=== PATIENT | female | born 1995 | race Caucasian/White ===

== ENCOUNTER 2021-07-22 10:06 | Outpatient (CLI) | payer BC, SELFPAY ==
--- NOTE | ~2021-07-22 | XR_ITS ---
EXAMINATION: XR hand BI arthritis min 3V EXAM DATE: 07/22/2021 11:07 INDICATION: Arthritis X10 Years. TECHNIQUE: Right hand frontal, lateral and oblique projections obtained and reviewed. Left hand fron david, lateral and oblique projections obtained and reviewed. Catchers projection of both hands. There is no prior study for comparison. FINDINGS: Right hand: There are no bony erosions identified. There are no acute fractures or dislocations ident ified. There is no subcutaneous gas. The soft tissue is unremarkable. There are no radiopaque for eign bodies. Left hand: There are no bony erosions identified. There are no acute fractures or dislocations identi fied. There is no subcutaneous gas. The soft tissue is unremarkable. There are no radiopaque fore ign bodies. IMPRESSION: Unremarkable XR hand BI arthritis min 3V exam. Reviewed, dictated and finalized at location G.
--- NOTE | ~2021-07-22 | XR_ITS ---
EXAMINATION: XR foot RT standing 2V EXAM DATE: 07/22/2021 11:07 INDICATION: Arthritis X10 Years. TECHNIQUE: Frontal and lateral projections of the right foot standing. There is no prior study for comparison. FINDINGS: There are no acute right foot fractures or dislocations identified. There are no bony ero sions identified. There is no subcutaneous gas. The soft tissue is unremarkable. There are no ra diopaque foreign bodies. IMPRESSION: 1. Unremarkable XR foot RT standing 2V exam. Reviewed, dictated and finalized at location G.
--- NOTE | ~2021-07-22 | XR_ITS ---
EXAMINATION: XR sacroiliac joints min 3V EXAM DATE: 07/22/2021 11:07 INDICATION: Arthritis X10 Years. TECHNIQUE: Frontal, bilateral oblique projections of the sacroiliac joints. There is no prior study for comparison. FINDINGS: There are no bony erosions identified. Sacrum, sacroiliac joints, sacral arcuate lines are intact. There is mild bilateral sacroiliac joint primary osteoarthritis. There are no acute fracture s identified. Calcifications in the pelvis are believed to be phleboliths. IMPRESSION: Mild symmetric bilateral sacroiliac osteoarthritis. Reviewed, dictated and finalized at location G.
--- NOTE | ~2021-07-22 | XR_ITS ---
EXAMINATION: XR foot LT standing 2V EXAM DATE: 07/22/2021 11:07 INDICATION: Arthritis X10 Years. TECHNIQUE: Frontal and lateral projections of the left foot standing. There is no prior study for c omparison. FINDINGS: There are no acute left foot fractures or dislocations identified. There are no bony erosio ns identified. There is no subcutaneous gas. The soft tissue is unremarkable. There are no radio paque foreign bodies. IMPRESSION: 1. Unremarkable XR foot LT standing 2V exam. Reviewed, dictated and finalized at location G.
[2021-07-22 10:42] LABS: Hematocrit 42.5 % (37.0-47.0); Hemoglobin 14.1 g/dL (12.0-15.0); Mean Corpuscular HGB Conc 33.2 g/dl (32-36); Mean Corpuscular Hemoglobin 30.9 pg (26-34); Mean Platelet Volume 11.1 fl (7.4-10.4); Platelet Count Result 288 k/mm3 (150-375); Red Blood Count 4.57 M/mm3 (4.2-5.4)
[2021-07-22 10:55] LABS: Alanine Aminotransferase 23 U/L (4-35); Albumin Level 4.7 g/dL (3.5-5.1); Alkaline Phosphatase 101 U/L (38-126); Anion Gap 7 mmol/L (8-16); Aspartate Amino Transferase 40 U/L (14-36); Bilirubin,Total 0.6 mg/dL (0.2-1.3); Blood Urea Nitrogen 10 mg/dL (7-17); CRP < 0.5 mg/dL (<1.0); Calcium 9.5 mg/dL (8.4-10.2); Carbon Dioxide 24 mmol/L (22-30); Chloride 106 mmol/L (98-107); Estimated Glomerular Filt Rate > 60; Glucose 92 mg/dL (65-110); Sodium 137 mmol/L (137-145)
[2021-07-22 10:58] LABS: Complement C3 123 mg/dL (88-165)
[2021-07-22 11:04] LABS: Rheumatoid Factor < 8.6 IU/ML (<12)
[2021-07-22 11:13] LABS: Erythrocyte Sedimentation Rate 11 mm/hr (0-20)
[2021-07-22 11:28] LABS: Hepatitis B Surface Antigen Negative (Negative)
[2021-07-22 11:45] LABS: Hepatitis B Surface Anti Res Negative; Hepatitis C Virus Antibody Negative (Negative)
[2021-07-24 12:38] LABS: SM Antibody <1.0; SM/RNP Antibody <1.0; SS-A <1.0; SS-B <1.0
[2021-07-24 13:29] LABS: NIL 0.01 IU/mL; Quantiferon TB Plus, 1T NEGATIVE (NEGATIVE)
== END 2021-07-22 10:07 | disposition home or self-care (01) ==
LOC: ANHLAB 10:09
PROVIDERS: Visit Provider Internal Medicine
DX: M19.90 Unspecified osteoarthritis, unspecified site (principal); Z11.59 Encounter for screening for other viral diseases; M53.3 Sacrococcygeal disorders, not elsewhere classified
CPT/HCPCS: 36415; 72202; 73130; 73620; 80053; 85027; 85652; 86038; 86140; 86160; 86225; 86235; 86430; 86480; 86706; 86803; 87340

== ENCOUNTER 2021-11-04 14:45 | Emergency (ER) | payer BC, SELFPAY ==
--- NOTE | ~2021-11-04 | XR_ITS ---
EXAMINATION: XR chest 1V portable INDICATION: Shortness of breath TECHNIQUE: Portable AP chest at 1700 hours COMPARISON: None available FINDINGS: The lungs are free acute opacities. No pleural effusion or pneumothorax. The cardiomediasti nal silhouette is normal. IMPRESSION: 1. No acute cardiopulmonary abnormality. Reviewed, dictated and finalized at location B.
[2021-11-04 14:48] VITALS: BP 130/78; PULSE 118; RESP 20; TEMP 36.6; O2SAT 98
--- NOTE | 2021-11-04 14:55 | ECG_ITS ---
Measurements Intervals [place] Rate: 100 P: 50 MT: 104 QRS: 30 QRSD: 70 T: 35 QT: 323 QTc: 417 Interpretive Statements SINUS TACHYCARDIA WITH SHORT MT INTERVAL BORDERLINE ST-T WAVE ABNORMALITY- ANTERIOR LEADS BORDERLINE ECG Electronically Signed On 11-04-2021 15:43:51 CDT by Marcus Renner D.O.
[2021-11-04] MEDS: LACTATED RINGERS 1,000 ML 999 ML IV CONT (15:28)
[2021-11-04 15:37] LABS: Basophils Percent Auto 0.1 % (0.2-1.2); Eosinophils Percent Auto 0.2 % (0-4.4); Hematocrit 37.5 % (37.0-47.0); Hemoglobin 12.8 g/dL (12.0-15.0); Immature Granulocyte Absolute 0.06 K/mm3 (0.00-0.031); Immature Granulocyte Percent A 0.6 % (0-0.5); Lymphocytes Absolute Auto 1.31 K/mm3 (0.9-3.2); Mean Corpuscular HGB Conc 34.1 g/dl (32-36); Mean Corpuscular Hemoglobin 31.1 pg (26-34); Monocytes Absolute Auto 0.6 K/mm3 (0.1-0.6); Monocytes Percent Auto 5.3 % (2.6-8.5); Neutrophils Absolute Auto 8.9 K/mm3 (1.3-6.7); Neutrophils Percent Auto 81.8 % (45.5-73.1); Platelet Count Result 270 k/mm3 (150-375); Red Blood Count 4.12 M/mm3 (4.2-5.4); Red Cell Distribution Width 13.6 % (11.5-14.5); White Blood Count 10.9 K/mm3 (4.5-10.0)
[2021-11-04 15:49] LABS: Alanine Aminotransferase 11 U/L (6-35); Albumin Level 4.4 g/dL (3.5-5.1); Alkaline Phosphatase 57 U/L (38-126); Anion Gap 8 mmol/L (8-16); Aspartate Amino Transferase 19 U/L (14-36); Bilirubin,Total 0.3 mg/dL (0.2-1.3); Blood Urea Nitrogen 8 mg/dL (7-17); Calcium 9.2 mg/dL (8.4-10.2); Carbon Dioxide 20 mmol/L (22-30); Chloride 105 mmol/L (98-107); Estimated CRCL calculation 134 ml/min; Estimated Glomerular Filt Rate > 60; Glucose 115 mg/dL (65-110); Potassium 3.4 mmol/L (3.4-5.0); Sodium 133 mmol/L (137-145)
[2021-11-04 16:00] LABS: NT Pro B Type Natriuretic Pept 45 pg/mL (5-100); Troponin I < 0.012 ng/mL (0.000-0.034)
--- NOTE | 2021-11-04 16:03 | ED.SOB ---
HPI - SOB/Dyspnea General Chief Complaint: Shortness of Breath/Dyspnea Stated Complaint: shortness of breath and chest pain and dizzinesss Time Seen by Provider: 11/04/21 15:00 History of Present Illness HPI Narrative: 26-year-old female who is 17weeks , who has been dealing with insomnia for the past month, and difficulty breathing especially at night or when she lays down flat, is coming in because she is still having difficult breathing. No fevers/chills, cough, nausea/vomiting, or abdominal pain or vaginal bleeding or discharge. Has been feeling quite stressed because of her inability to sleep. Related Data Home Medications Medication Instructions Recorded Confirmed prenat.vits,yossi,[id number] 1 tablet PO DAILY 08/27/21 Allergies Allergy/AdvReac Type Severity Reaction Status Date / Time doxylamine Allergy Unknown Dyspnea / Verified 10/30/21 10:23 SOB pyridoxine Allergy Unknown Dyspnea / Verified 10/30/21 10:23 SOB Review of Systems Review of Systems: CONST: No fever. HEENT: No sore throat C/V: No chest pain RESP: Difficulty breathing GI: No nausea : No vaginal bleeding. M/S: No joint pain. SKIN: No rash. NEURO: [No focal numbness or weakness] PSYCH: Stressed and tired PMFSH Past Medical History Medical History Acid reflux Bilateral hand pain Encounter for screening for other viral diseases Inflammatory arthritis Joint pain Seronegative rheumatoid arthritis of both hands (~05/2021) Vaginal delivery Surgical History Surgical History [place] teeth removed Family History Family History Mother Family history of lung cancer Father Family history of lymphoma Social History Social History Smoking status: Never smoker Alcohol intake: current Exam Narrative: EXAMINATION OF ORGAN SYSTEMS/BODY AREAS: Constitutional: Vital signs per nursing GENERAL:[No acute distress, non-toxic appearing.] HEAD: Normal with no signs of head trauma. EYES: EOMI, conjunctiva normal ENT: Hearing grossly intact LUNGS: Somewhat shallow but otherwise nonlabored breathing. Clear to auscultation bilaterally HEART: Tachycardic ABD: [Soft], gravid, [non mild to palpation] EXT: Normal range of motion, no swelling or pain to either leg SKIN: [No rashes or lesions.] NEURO: [Alert and oriented x 3. No gross focal sensory or strength deficits.] PSYCH: Normal affect Course Vital Signs Vital signs: Vital Signs Temperature 97.9 F 11/04/21 14:48 Pulse Rate 118 H 11/04/21 14:48 Respiratory Rate 20 11/04/21 14:48 Blood Pressure 130/78 11/04/21 14:48 Pulse Oximetry 98 11/04/21 14:48 Oxygen Delivery Room Air 11/04/21 14:48 Temperature 97.9 F 11/04/21 14:48 Pulse Rate 118 H 11/04/21 14:48 Respiratory Rate 20 11/04/21 14:48 Blood Pressure 130/78 11/04/21 14:48 Pulse Oximetry 98 11/04/21 14:48 Oxygen Delivery Room Air 11/04/21 14:48 MDM - SOB/Dyspnea MDM Narrative Medical decision making narrative: 26-year-old female who is 17 weeks presents with difficulty breathing and insomnia, vital signs notable for tachycardia, exam shows tired patient whose lungs are clear to auscultation bilaterally, she has no signs or symptoms of DVT however given her persistent difficulty breathing and history of I am concerned for possible PE, less likely cardiomyopathy without chest pain, less likely pneumonia without any cough fevers or chills. I will obtain labs including troponin, D-dimer, and BNP, give the patient IV fluids, and re-evaluate. All labs are negative including d-dimer (so no indication fo CT-PE per Wells criteria), CXR obtained is unremarkable. HR has improved and is now normal. I discussed with OB Dr. Epstein who felt this was more likely anxie
[2021-11-04 16:38] LABS: D Dimer 0.27 ug/mL (<0.48)
== END 2021-11-04 17:56 | disposition home or self-care (01) ==
PROVIDERS: Emergency Medicine; Emergency Provider Emergency Medicine
DX: O99.352 Diseases of the nervous system complicating pregnancy, second trimester (principal); G47.00 Insomnia, unspecified; O26.892 Other specified pregnancy related conditions, second trimester; R06.00 Dyspnea, unspecified; O99.891 Other specified diseases and conditions complicating pregnancy; M06.042 Rheumatoid arthritis without rheumatoid factor, left hand; M06.041 Rheumatoid arthritis without rheumatoid factor, right hand; O99.612 Diseases of the digestive system complicating pregnancy, second trimester; K21.9 Gastro-esophageal reflux disease without esophagitis; Z3A.17 17 weeks gestation of pregnancy
CPT/HCPCS: 36415; 71045; 80053; 83880; 84443; 84484; 85025; 85380; 93005; 96360; 99284; J7120

== ENCOUNTER 2021-12-23 10:20 | Outpatient (CLI) | payer BC, SELFPAY ==
[2021-12-23 12:06] LABS: Basophils Percent Auto 0.2 % (0.2-1.2); Eosinophils Percent Auto 0.3 % (0-4.4); Hematocrit 35.1 % (37.0-47.0); Hemoglobin 11.3 g/dL (12.0-15.0); Immature Granulocyte Absolute 0.07 K/mm3 (0.00-0.031); Immature Granulocyte Percent A 0.7 % (0-0.5); Lymphocytes Absolute Auto 1.38 K/mm3 (0.9-3.2); Lymphocytes Percent Auto 13.2 % (18.3-44.2); Mean Corpuscular HGB Conc 32.2 g/dl (32-36); Mean Corpuscular Hemoglobin 30.7 pg (26-34); Mean Corpuscular Volume 95.4 fl (80-100); Mean Platelet Volume 11.5 fl (7.4-10.4); Monocytes Absolute Auto 0.6 K/mm3 (0.1-0.6); Monocytes Percent Auto 5.4 % (2.6-8.5); Neutrophils Absolute Auto 8.4 K/mm3 (1.3-6.7); Neutrophils Percent Auto 80.2 % (45.5-73.1); Platelet Count Result 217 k/mm3 (150-375); Red Blood Count 3.68 M/mm3 (4.2-5.4); Red Cell Distribution Width 13.5 % (11.5-14.5); White Blood Count 10.4 K/mm3 (4.5-10.0)
[2021-12-23 12:20] LABS: Glucose 1 Hour PP 50gm Dose 150 mg/dL
== END 2021-12-23 10:21 | disposition home or self-care (01) ==
LOC: ANHLAB 10:21
PROVIDERS: PCP Family Medicine; Visit Provider Student in an Organized Health Care Education/Training Program
DX: Z34.82 Encounter for supervision of other normal pregnancy, second trimester (principal); Z3A.00 Weeks of gestation of pregnancy not specified
CPT/HCPCS: 36415; 82947; 85025

== ENCOUNTER 2021-12-29 07:49 | Outpatient (CLI) | payer BC, SELFPAY ==
[2021-12-29 08:31] LABS: Glucose Fasting Gestational 82 mg/dL (>/=95)
[2021-12-29 09:53] LABS: Glucose 1 Hour Gest 189 mg/dL (>/=180)
[2021-12-29 10:49] LABS: Glucose 2 Hour Gest 201 mg/dL (>/= 155)
[2021-12-29 12:17] LABS: Glucose 3 Hour Gest 140 mg/dL (>/=140)
== END 2021-12-29 07:50 | disposition home or self-care (01) ==
LOC: ANHLAB 07:51
PROVIDERS: PCP Family Medicine; Visit Provider Student in an Organized Health Care Education/Training Program
DX: O99.810 Abnormal glucose complicating pregnancy (principal); Z3A.00 Weeks of gestation of pregnancy not specified
CPT/HCPCS: 36415; 82951; 82952

== ENCOUNTER 2022-02-19 13:30 | Outpatient (CLI) | payer BC, SELFPAY ==
[2022-02-19 13:45] LABS: Basophils Percent Auto 0.2 % (0.2-1.2); Eosinophils Absolute Auto 0.1 K/mm3 (0-0.3); Eosinophils Percent Auto 0.7 % (0-4.4); Hematocrit 32.2 % (37.0-47.0); Hemoglobin 10.3 g/dL (12.0-15.0); Lymphocytes Absolute Auto 1.76 K/mm3 (0.9-3.2); Lymphocytes Percent Auto 18.2 % (18.3-44.2); Mean Corpuscular Hemoglobin 29.7 pg (26-34); Mean Corpuscular Volume 92.8 fl (80-100); Monocytes Absolute Auto 0.8 K/mm3 (0.1-0.6); Neutrophils Absolute Auto 6.9 K/mm3 (1.3-6.7); Neutrophils Percent Auto 71.9 % (45.5-73.1); Platelet Count Result 237 k/mm3 (150-375); Red Blood Count 3.47 M/mm3 (4.2-5.4); Red Cell Distribution Width 13.2 % (11.5-14.5); White Blood Count 9.7 K/mm3 (4.5-10.0)
[2022-02-19 14:55] LABS: HIV 1/2 Ab P24 Ag Result Negative (Negative)
[2022-02-20 10:18] LABS: Rapid Plasma Reagin Non-Reactive (NonReactive)
== END 2022-02-19 13:31 | disposition home or self-care (01) ==
PROVIDERS: PCP Family Medicine; Visit Provider Student in an Organized Health Care Education/Training Program
DX: Z34.83 Encounter for supervision of other normal pregnancy, third trimester (principal); Z3A.00 Weeks of gestation of pregnancy not specified
CPT/HCPCS: 36415; 85025; 86592; 86703; G0432

== ENCOUNTER 2022-03-09 11:02 | Outpatient (CLI) | payer BC, SELFPAY ==
[2022-03-09 11:39] LABS: Alanine Aminotransferase 17 U/L (6-35); Albumin Level 3.8 g/dL (3.5-5.1); Alkaline Phosphatase 158 U/L (38-126); Aspartate Amino Transferase 35 U/L (14-36); Bilirubin,Total 0.6 mg/dL (0.2-1.3)
[2022-03-17 15:47] LABS: Chenodeoxycholic Acid 2.1 umol/L (< OR = 3.9); Cholic Acid 2.4 umol/L (< OR = 2.8); Deoxycholic Acid 1.1 umol/L (< OR = 2.3); Total Bile Acids 5.6 umol/L (< OR = 8.3)
== END 2022-03-09 11:03 | disposition home or self-care (01) ==
LOC: ANHLAB 11:03
PROVIDERS: PCP Family Medicine; Visit Provider Student in an Organized Health Care Education/Training Program
DX: O99.719 Diseases of the skin and subcutaneous tissue complicating pregnancy, unspecified trimester (principal); L29.9 Pruritus, unspecified; Z3A.00 Weeks of gestation of pregnancy not specified
CPT/HCPCS: 36415; 80076; 82542

== ENCOUNTER 2022-03-24 00:01 | Inpatient (IN) | payer BC, SELFPAY ==
[2022-03-25] VITALS (176 sets, daily range): BP systolic 87–149; BP diastolic 54–96; PULSE 79–139; TEMP 36.1–36.8; O2SAT 83–100; BMI 30.2
[2022-03-25 00:37] LABS: Glucose Point of Care 145 mg/dl (65-105)
[2022-03-25 00:41] LABS: Basophils Percent Auto 0.2 % (0.2-1.2); Eosinophils Percent Auto 0.5 % (0-4.4); Hematocrit 31.3 % (37.0-47.0); Immature Granulocyte Absolute 0.07 K/mm3 (0.00-0.031); Immature Granulocyte Percent A 0.8 % (0-0.5); Lymphocytes Absolute Auto 1.66 K/mm3 (0.9-3.2); Lymphocytes Percent Auto 18.9 % (18.3-44.2); Mean Corpuscular HGB Conc 31.9 g/dl (32-36); Mean Corpuscular Volume 87.7 fl (80-100); Monocytes Absolute Auto 0.6 K/mm3 (0.1-0.6); Monocytes Percent Auto 7.2 % (2.6-8.5); Neutrophils Absolute Auto 6.3 K/mm3 (1.3-6.7); Neutrophils Percent Auto 72.4 % (45.5-73.1); Platelet Count Result 242 k/mm3 (150-375); Red Blood Count 3.57 M/mm3 (4.2-5.4); Red Cell Distribution Width 13.3 % (11.5-14.5); White Blood Count 8.8 K/mm3 (4.5-10.0)
[2022-03-25] MEDS: LACTATED RINGERS 1,000 ML 125 ML IV CONT ×3 (00:50→15:45)
[2022-03-25] MEDS: OXYTOCIN 30 UNITS/NS 500 ML 30 UNITS/500 ML BAG IV CONT (02:02)
[2022-03-25 02:07] LABS: Glucose Point of Care 91 mg/dl (65-105)
--- NOTE | 2022-03-25 04:18 | WPDANESEPP ---
Anes - Eval Pre Procedure Procedure: labor epidural Date/Time: 03/25/22 04:18 Pre Op Diagnosis: IOL Patient Data Age: 26 Gender: F Height: Weight: Last Vital Signs Temp 36.1 C L 03/25/22 00:15 Pulse 80 03/25/22 04:15 BP 103/57 L 03/25/22 04:15 Pulse Ox 99 03/25/22 00:14 O2 Del Method Room Air 03/25/22 01:02 Allergies Allergy/AdvReac Type Severity Reaction Status Date / Time doxylamine Allergy Unknown Nausea and Verified 03/24/22 12:41 Vomiting pyridoxine Allergy Unknown Nausea and Verified 03/24/22 12:41 Vomiting trazodone Allergy Dyspnea / Verified 03/24/22 12:41 SOB Home Medications Medication Instructions Recorded Confirmed Type escitalopram oxalate 10 mg tablet 10 mg PO DAILY 11/12/21 03/25/22 History alcohol swabs (Alcohol Prep Pads) 1 pad topical .COMPLEX #100 ea 01/07/22 03/25/22 Rx blood sugar diagnostic (Blood #50 ea 01/07/22 01/07/22 Rx Glucose Test strips) blood-glucose meter #1 ea 01/07/22 01/07/22 Rx lancets 30 gauge (BD Ultra-Fine II #100 ea 01/07/22 01/07/22 Rx Lancets) insulin detemir U-100 100 unit/mL 8 unit subcut DAILY 03/13/22 03/13/22 History (3 mL) subcutaneous pen prenat.vits,yossi,[id number] 1 tablet PO HS 03/13/22 03/13/22 History quetiapine 300 mg tablet 300 mg PO HS 03/13/22 03/13/22 History quetiapine 50 mg tablet 50 mg PO HS 03/13/22 03/13/22 History Laboratory Tests 03/25/22 03/25/22 03/25/22 00:19 00:27 00:27 WBC 8.8 K/mm3 K/mm3 (4.5-10.0) RBC 3.57 M/mm3 L M/mm3 (4.2-5.4) Hgb 10.0 g/dL L g/dL (12.0-15.0) Hct 31.3 % L % (37.0-47.0) MCV 87.7 fl fl (80-100) MCH 28.0 pg pg (26-34) MCHC 31.9 g/dl L g/dl (32-36) RDW 13.3 % % (11.5-14.5) Plt Count 242 k/mm3 k/mm3 (150-375) MPV 12.0 fl H fl (7.4-10.4) Immature Gran % (Auto) 0.8 % H % (0-0.5) Neut % (Auto) 72.4 % % (45.5-73.1) Lymph % (Auto) 18.9 % % (18.3-44.2) Nicholas % (Auto) 7.2 % % (2.6-8.5) Eos % (Auto) 0.5 % % (0-4.4) Baso % (Auto) 0.2 % % (0.2-1.2) Lymph # (Auto) 1.66 K/mm3 K/mm3 (0.9-3.2) Nicholas # (Auto) 0.6 K/mm3 K/mm3 (0.1-0.6) Eos # (Auto) 0.0 K/mm3 K/mm3 (0-0.3) Baso # (Auto) 0.0 K/mm3 K/mm3 (0.0-0.1) Abs Immat Gran (auto) 0.07 K/mm3 H K/mm3 (0.00-0.031) Absolute Neuts (auto) 6.3 K/mm3 K/mm3 (1.3-6.7) Absolute Nucleated RBC 0.0 K/mm3 K/mm3 (0.0-0.012) Nucleated RBC % 0.0 % % (0.0-0.2) POC Capillary Glucose 145 mg/dl H mg/dl (65-105) RPR Pending Blood Type Antibody Screen 03/25/22 03/25/22 00:27 02:01 WBC RBC Hgb Hct MCV MCH MCHC RDW Plt Count MPV Immature Gran % (Auto) Neut % (Auto) Lymph % (Auto) Nicholas % (Auto) Eos % (Auto) Baso % (Auto) Lymph # (Auto) Nicholas # (Auto) Eos # (Auto) Baso # (Auto) Abs Immat Gran (auto) Absolute Neuts (auto) Absolute Nucleated RBC Nucleated RBC % POC Capillary Glucose 91 mg/dl mg/dl (65-105) RPR Blood Type O Positive Antibody Screen Negative Patient hx anesthesia problems: none Family hx anesthesia problems: none Results Review: All pre-operative results and documents have been reviewed as part of the pre-operative evaluation. [facility] Past Medical History Medical History Acid reflux Bilateral hand pain Encounter for screening for other viral diseases Inflammatory arthritis Joint pain Repetitive intrusions of sleep Seronegative rheumatoid arthritis of both hands (~05/2021) Vaginal de
[2022-03-25 06:37] LABS: Rapid Plasma Reagin Non-Reactive (NonReactive)
[2022-03-25] MEDS: miSOPROStol 25 MCG TABLET VAGINAL (08:00)
[2022-03-25 08:41] LABS: Glucose Point of Care 78 mg/dl (65-105)
[2022-03-25 12:35] LABS: Glucose Point of Care 68 mg/dl (65-105)
--- NOTE | 2022-03-25 13:49 | PM.IMHP ---
H&P: HPI History of Present Illness Date/Time: 03/25/22 13:49 Chief Complaint: IUP at 37w3d gestation Cholestasis of Gestational diabetes-insulin controlled Narrative: Patient is 26-year-old LMP 07/06/2021 currently 37 weeks 3 days gestation with MIKEY 04/12/2022 who presented to L&D for induction of labor secondary to cholestasis of . Patient is dated by LMP consistent with ultrasound on 08/28/2021 at 7 weeks gestation. Patient reported onset of pruritus approximately 2 weeks ago. Initial labs were within normal limits. Repeat labs resulted yesterday and showed an increase in bile acids. Decision was made to proceed with induction of labor. Patient also has a history of gestational diabetes and is currently controlled with insulin. In general, patient doing well. Still reporting pruritus. Denies any vaginal bleeding or leakage of fluid. Reports occasional contractions. Reports good movement. Review of Systems Review of Systems: All systems reviewed & are unremarkable except as noted in HPI and below Constitutional: Constitutional: Reports as per HPI and Reports no additional constitutional complaints Eyes: Eyes: Reports as per HPI and Reports no additional eye complaints ENT: Reports system reviewed and no additional complaints, except as documented and Reports as per HPI Cardiovascular: Cardiovascular: Reports as per HPI and Reports no additional cardiovascular complaints Respiratory: Respiratory: Reports as per HPI and Reports no additional respiratory complaints Gastrointestinal: Gastrointestinal: Reports as per HPI and Reports no additional gastrointestinal complaints Genitourinary: Genitourinary: Reports no additional female genitourinary complaints and Reports as per HPI Musculoskeletal: Musculoskeletal: Reports no additional musculoskeletal complaints and Reports as per HPI Integumentary/Breasts: Skin/Breast: Reports system reviewed and no additional complaints, except as docu and Reports as per HPI Neurologic: Reports system reviewed and no additional complaints, except as documented and Reports as per HPI Psychiatric: Psychiatric: Reports no additional psychiatric complaints and Reports as per HPI Endocrine: Endocrine: Reports no additional endocrine complaints and Reports as per HPI Hematologic/Lymphatic: Hematologic/Lymphatic: Reports no additional hematologic/lymphatic complaints and Reports as per HPI Allergic/Immunologic: Allergic/Immunologic: Reports no additional allergic/immunologic complaints and Reports as per HPI PMFSH Past Medical History Medical History Acid reflux Bilateral hand pain Encounter for screening for other viral diseases Inflammatory arthritis Joint pain Repetitive intrusions of sleep Seronegative rheumatoid arthritis of both hands (~05/2021) Vaginal delivery Surgical History Surgical History [place] teeth removed Family History Family History Mother Family history of lung cancer Father Family history of lymphoma Grandparent Family history of lung cancer Grandparent Skin cancer Other Pancreatic cancer Social History Social History Smoking status: Never smoker Alcohol intake: current Substance use: never Lack of Transportation: No Lack of Food: Never True Current Housing: I Have Housing Concerned About Future Housing: No Difficulty Paying Gas/Electric Bills: No Difficulty Paying for Meds: No Currently Unemployed: No Education: Bachelor's Degree Difficulty w/ Childcare or Family Care: No Spiritual care concerns: No Meds Home Medications and Allergies Home Medications Medication Instructions Recorded Confirmed Type escitalopram oxalate 10 mg tablet 10 mg PO DAILY 11/12/21 03/25/22 Histo
[2022-03-25 14:47] LABS: Glucose Point of Care 121 mg/dl (65-105)
--- NOTE | 2022-03-25 16:39 | PM.OBPNLAB ---
Pain Control Date/time seen: 03/25/22 16:39 Patient doing well. Comfortable s/p epidural. SVE /-2. AROM performed. Clear fluid noted. EFM category 1. [place] shows contractions q1-2 mins. Continue pitocin. Continuous EFM and toco.
[2022-03-25 17:47] LABS: Glucose Point of Care 62 mg/dl (65-105)
[2022-03-25 21:11] LABS: Glucose Point of Care 68 mg/dl (65-105)
--- NOTE | 2022-03-25 23:04 | P.PCNOB_ITS ---
OB - Delivery Note Procedure Delivery date: 03/25/22 Procedure: Patient is a 26-year-old now who presented to labor and delivery at midnight on 03/25/2022 at 37 weeks 3 days gestation for induction of labor secondary to cholestasis of . Patient also had history of gestational diabetes controlled with insulin. Patient was admitted to labor and delivery. Per RN, patient was noted be shira approximately every 3 minutes at time of presentation. Initial cervical exam was approximately 1 cm dilated. Decision was made to begin induction of labor with Pitocin. Pitocin was started and titrated overnight. Patient made no further cervical change. Decision was made to discontinue Pitocin after approximately 7 hours. Cytotec x 1 dose was then administered. Patient made cervical change to approximately 2 cm dilated. Pitocin was restarted and continuously titrated throughout the remainder of the morning and afternoon. Patient became uncomfortable and requested an epidural for pain management which was placed without difficulty. She continued to make slow cervical change. Artificial rupture of membranes was performed at 4:36 p.m. Clear amniotic fluid was noted. Pitocin was continued and patient made progressive cervical change. An IUPC was placed for enhanced monitoring. Patient progressed to fully dilated at 9:40 p.m. Patient was encouraged to push and found to be pushing well. She was prepped and draped for delivery. At 10:34 p.m., patient delivered infant head atraumatically and without difficulty in BART presentation. Compound presentation was also noted as a hand delivered alongside face. A nuchal cord x1 was noted and reduced. With subsequent push, the 's neck, shoulders, and rest of body delivered without difficulty. Infant was crying spontaneously. 's nose and mouth were suctioned with bulb suction and was placed on maternal abdomen where care was assumed by awaiting nursing staff. Delayed cord clamping was performed for approximately 2 minutes. Cord was clamped and cut. A segment of cord was collected for cord gases. Cord blood was collected. The placenta was delivered spontaneously and intact. On inspection, a first-degree perineal laceration was noted. This laceration was repaired with 2-0 and 3-0 Vicryl in the usual fashion. Excellent hemostasis was noted. Estimated blood loss for entire delivery was 300 cc. The infant was a live born female infant, Apgars 7 and 9, weighing 6 lbs. 14 oz. Both mother and baby doing well at end of delivery. Events: Gestational Diabetes (insulin controlled) and Other (cholestasis of ) Induction method: Per Misoprostol Protocol and Per Pitocin Protocol Delivery augmentation: Rupture of Membranes and Pitocin Delivery monitor: External FHT, External Uterine and Internal Uterine Route of delivery: Laceration Description: Perineal - 1st Degree Delivery repair: vicryl (2-0 and 3-0 vicryl) Specimen: Yes (placenta and cord, cord blood and cord gases) Quantitative Blood Loss (ml): 300 Anesthesia type: Epidural Disposition: Floor Complications: No immediate complications [place] Baby Date of : 03/25/22 Time of : 22:34 Weeks of gestation at delivery: 37 (37.3) Infant gender: Female Weight (pounds): 6 Weight (ounces): 14 presentation: compound ( hand delivered alongside face) position: Right Occiput Anterior Placenta delivery description: Spontaneous Cord Vessel Description: 3 Vessels, Nuchal Cord (x1) and Delayed Cord Clamping (x120s) score one minute: 7 score five minutes: 9 AMG Delivery Billing Delivery Delivery: Delivery Charge
[2022-03-26] VITALS (13 sets, daily range): BP systolic 98–141; BP diastolic 50–106; PULSE 78–100; RESP 16–20; TEMP 36.6–36.9; O2SAT 97–100
[2022-03-26] MEDS: IBUPROFEN 600 MG TABLET PO ×4 (00:08→21:10)
--- NOTE | 2022-03-26 01:22 | PC.NURSE ---
Patient transferred to post room #292 per wheelchair from labor and delivery. Support person present. Oriented to unit, room, information board, rooming in, admission packet and security measures. Patient verbalizes understanding.
[2022-03-26 04:32] LABS: Hematocrit 29.4 % (37.0-47.0); Hemoglobin 8.9 g/dL (12.0-15.0)
--- NOTE | 2022-03-26 08:00 | PC.NURSE ---
PT introductions made and plan of care discussed per post , pain management, , daily care activities. PT and spouse both recipients of such instructions and no barriers to learning identified at this time. PT received such instructions this shift per one to one discussion , mom baby care guide and demonstrations. PT verbalized understanding of such care.
--- NOTE | 2022-03-26 09:13 | PM.OBPNVD ---
OB - PN: Subj Subjective Date/time seen: 03/26/22 09:13 Interval history: No itching. Patient comments: pain well controlled, tolerating diet and other (Decreasing lochia.) [place] baby status: doing well and nursing well [place] feeding status: exclusively breast feeding OB - PN: Obj Data Labs CBC & Chem 7: 03/26/22 04:18 Labs: Laboratory Results - last 24 hr 03/25/22 03/25/22 03/25/22 12:31 14:43 17:45 Hgb Hct POC Capillary Glucose 68 121 H 62 L 03/25/22 03/26/22 21:08 04:18 Hgb 8.9 L Hct 29.4 L POC Capillary Glucose 68 OB - PN A/P Plan day: 1 Plan: routine care Comments: Patient doing well. Time Spent With Patient Time: Total time spent is greater than 50% in coordination of care (as documented) at patient's floor/unit and/or counseling patient: Exam Psych: Affect: normal affect Other: Abd: fundus firm below umbilicus, nontender Perineum: healing Ext: nontender
[2022-03-26] MEDS: DOCUSATE SODIUM 100 MG CAPSULE PO ×2 (09:47→17:34)
[2022-03-26] MEDS: MULTIVIT/MIN/PREN/FOL AC/IRON TABLET 1 TAB PO (09:47)
[2022-03-26] MEDS: ACETAMINOPHEN 325 MG TABLET 650 MG PO (09:47)
[2022-03-26] MEDS: POLYSACCHARIDE IRON COMPLEX 150 MG CAPSULE PO ×2 (09:48→17:35)
[2022-03-26] MEDS: LANOLIN (LANSINOH) 7.5 GM CREAM 1 APPLIC TOPICAL (09:49)
--- NOTE | 2022-03-26 10:51 | WPDANLDPN2 ---
Anes-Prog Note L&D Date/Time: 03/26/22 10:51 Comfortable throughout: labor and delivery Neuraxial method: epidural Epidural/Spinal procedure site: clean & non-tender Neuro status: Neuro function grossly intact. Cardiovascular status: normal Respiratory status: normal Airway patency: baseline Mental status: baseline Post-Op hydration status: normal Vital Signs: Last Vital Signs Temp 36.6 C 03/26/22 08:00 Pulse 84 03/26/22 08:00 Resp 18 03/26/22 08:00 BP 130/87 03/26/22 08:00 Pulse Ox 100 03/26/22 08:00 O2 Del Method Room Air 03/25/22 01:02 Pain score (VAS): 05/12 I/O: Intake & Output 03/25/22 03/26/22 03/26/22 23:59 07:59 15:59 Intake Total 500 Output Total 300 Balance 200 Post-procedural complaints: none Patient feedback: Patient satisfied with anesthetic care.
[2022-03-26] MEDS: HYDROcodone/acetaminophen (*CRX) 5-325 MG TABLET 1 TAB PO ×2 (13:57→14:51)
--- NOTE | 2022-03-26 17:30 | PC.NURSE ---
Anesthesia called to assess pt's right hip discomfort. PT able to bear weight and move the extremity. no redness or visible bruise noted. PT states that she would like anesthesia to evaluate.
[2022-03-26] MEDS: HYDROcodone/acetaminophen (*CRX) 10-325 MG TABLET 1 TAB PO (21:10)
[2022-03-27] MEDS: HYDROcodone/acetaminophen (*CRX) 5-325 MG TABLET 1 TAB PO ×2 (03:25→08:18)
[2022-03-27] MEDS: IBUPROFEN 600 MG TABLET PO (03:25)
[2022-03-27] MEDS: POLYSACCHARIDE IRON COMPLEX 150 MG CAPSULE PO (08:13)
[2022-03-27] MEDS: DOCUSATE SODIUM 100 MG CAPSULE PO (08:13)
[2022-03-27 09:30] VITALS: BP 105/69; PULSE 89; RESP 18; TEMP 36.4; O2SAT 99
--- NOTE | 2022-03-27 10:32 | P.PNOB_ITS ---
OB - PN: Subj Subjective Date/time seen: 03/27/22 10:32 Interval history: No itching. Perineal pain better today with the [place]. No lightheadedness or dizziness. Patient comments: pain well controlled, tolerating diet and other (Decreasing lochia.) [place] baby status: doing well and nursing well [place] feeding status: exclusively breast feeding OB - PN: Obj Data Labs CBC & Chem 7: 03/26/22 04:18 OB - PN A/P Assessment and Plan (1) Delivery normal: Code(s): O80 - Encounter for full-term uncomplicated delivery Status: Acute Plan Doing well. Discharge home today. Discharge precautions discussed. Plan day: 2 Plan: routine care Comments: Patient doing well. Time Spent With Patient Time: Total time spent is greater than 50% in coordination of care (as documented) at patient's floor/unit and/or counseling patient: Exam Psych: Affect: normal affect Other: Abd: fundus firm below umbilicus, nontender Perineum: healing Ext: nontender
--- NOTE | 2022-03-27 10:40 | PM.OBDSVD ---
DS: Admitting Diagnosis Discharge Date 03/27/2022 Admitting Diagnosis Cholestasis of Induction of labor DS: Discharge Diagnosis Discharge Diagnosis (1) Cholestasis of : Code(s): O26.619 - Liver and biliary tract disorders in , unspecified trimester; K83.1 - Obstruction of bile duct Status: Acute Plan Delivery OB - DS: Summary Hospital Course Hospital Course: Patient admitted for [facility] for cholestasis of at term. She was admitted for cervidil and then Pitocin. She had a vaginal delivery. she did well. Itching was improved. Baby was doing well. She did get relief of cramping pain with adding [place]. She was discharged to home on day 2. Discharge precautions discussed. OB Procedures : NST and Ultrasound OB Procedures Intrapartum: Spontaneous Vag Delivery OB Procedures: : None Peripartum Data Delivery Method: Natural Vaginal Laceration Description: Perineal - 1st Degree complications: none Status at Discharge Functional status at discharge: independent ambulation Time Spent with Patient Time attestation: Total time spent providing and/or coordinating discharge services: Exam Const: General: cooperative Orientation/consciousness: oriented to person, oriented to place and oriented to time HENMT: Face/Nose/Sinus: Normal external nose present Eyes: General: appearance normal, both eyes and all related structures Resp: Effort & Inspection: normal respiratory effort GI: Inspection: normal to inspection Skin: General skin exam: normal color Neuro: General: oriented to person, oriented to place and oriented to time Extrem: General: normal to inspection and no calf tenderness Psych: Appearance: grossly normal Mental Status: mental status grossly normal DS: Data Data Completed and Pending Pending studies at discharge: Pending at discharge 03/25/22 22:36 Surgical [PTH] Routine Discharge Plan Discharge Attending physician on discharge: Aranza Foley Consulting providers: Earnestine Ospina Discharging Clinician: Owen Epstein Anticipated Discharge Date/Time: 03/27/22 10:35 Patient Disposition: Home, Self-Care Activity: may shower, no driving and pelvic rest Diet: regular Discharge Instructions: Pelvic rest for 4-6 weeks. May take over the counter (Motrin) Ibuprofen 600mg every six hours as needed or Tylenol for pain- follow package instructions. May take prescription pain medication for pain not relieved with Motrin or Tylenol. Call if saturating more than a pad an hour, leg redness, pain and swelling, temperature>100.4. No strenuous activity. Continue previously prescribed Lexapro and Seroquel. Patient Instructions: Antibiotic Form Stand Alone Forms: General Discharge Information Follow-up/Referrals: Aranza Foley MD [Physician] - 2 Weeks (Call for appointment) Discharge Medications: New hydrocodone-acetaminophen 5-325 mg Tablet 1 tablet PO Q4H PRN (Reason: Pain Rated 4-6) Qty: 10 0RF Continued escitalopram oxalate 10 mg tablet 10 mg PO DAILY (DME) blood-glucose meter Kit See Rx Instructions .Route Qty: 1 0RF Rx Instructions: As directed (DME) Blood Glucose Test Strip See Rx Instructions .Route Qty: 50 1RF Rx Instructions: As directed alcohol swabs [Alcohol Prep Pads] Pads, Medicated 1 pad topical .COMPLEX Qty: 100 1RF Rx Instructions: 1 pad topically Use pad to cleanse skin prior to fingersticks; (DME) lancets [BD Ultra-Fine II Lancets] 30 gauge misc See Rx Instructions .Route Qty: 100 0RF Rx Instructions: As directed insulin detemir U-100 100 unit/mL (3 mL) Insulin Pen 8 unit SUBCUT DAILY quetiapine 300 mg Tablet 300 mg PO HS prenat.vits,yossi,[id number]-[id number] Tablet 1 tablet PO HS quetiapine 50 mg Tablet 50 mg PO HS Date of admission: 03/24/22 00:01 P
[2022-03-28 08:42] VITALS: BP 113/75; PULSE 93; RESP 20; TEMP 36.8; O2SAT 99
== END 2022-03-27 11:40 | disposition home or self-care (01) | DRG 805 ==
LOC: ANHLDR 03-25 09:21 → ANHOB2 03-27 10:40 → ANHLDR 03-30 11:23 → ANHOB2 03-30 11:23
PROVIDERS: Admitting Provider Student in an Organized Health Care Education/Training Program; PCP Family Medicine; Visit Provider Obstetrics & Gynecology
DX: O26.62 Liver and biliary tract disorders in childbirth (principal); K83.1 Obstruction of bile duct; Z37.0 Single live birth; Z3A.37 37 weeks gestation of pregnancy; O69.81X0 Labor and delivery complicated by cord around neck, without compression, not applicable or unspecified; O24.424 Gestational diabetes mellitus in childbirth, insulin controlled; O70.0 First degree perineal laceration during delivery; O99.892 Other specified diseases and conditions complicating childbirth; M19.90 Unspecified osteoarthritis, unspecified site; M06.042 Rheumatoid arthritis without rheumatoid factor, left hand; M06.041 Rheumatoid arthritis without rheumatoid factor, right hand; O32.6XX0 Maternal care for compound presentation, not applicable or unspecified
CPT/HCPCS: 36415; 82948; 85014; 85018; 85025; 86592; 86850; 86900; 86901; 88307; A9270; J2590; J2795; J7120

== ENCOUNTER 2022-03-27 09:30 | Outpatient (RCR) | payer BC, SELFPAY ==
[2022-03-20 11:09] VITALS: BP 109/64; PULSE 105
== END 2022-06-18 23:59 | disposition home or self-care (01) ==
LOC: ANHOBOP 09:30
PROVIDERS: PCP Family Medicine; Visit Provider Student in an Organized Health Care Education/Training Program
DX: O24.419 Gestational diabetes mellitus in pregnancy, unspecified control (principal); O26.613 Liver and biliary tract disorders in pregnancy, third trimester; K83.1 Obstruction of bile duct; Z3A.36 36 weeks gestation of pregnancy
CPT/HCPCS: 59025

== ENCOUNTER 2022-04-02 09:42 | Outpatient (CLI) | payer BC, SELFPAY ==
--- NOTE | 2022-04-02 11:55 | PC.NURSE ---
In- 0942 Out- 1103 Reason for visit: Poor feeding and poor weight gain History: mother had an IOL on 03/25/2022 for cholestasis. The was complicated with GDM treated with insulin. QBL was 300 after a vaginal delivery resulted from a 10 hr 50 min labor with an epidural. Mother's post hgb was 8.9mg/dl per chart. Medical Hx: PPD, hypothyroidism with first , acid reflux, inflammation, bilateral hand pain, joint pain, repetitive intrusions of sleep and had her hip evaluated by anesthesia after delivery. Mother denies feelings of harming herself and states she is doing well . Medications: Quetiapine 350mg a day (for sleeping) and recently started Escitalopram. Discussed the risks and benefits of these medications as it pertains to and maternal care. Mother was encouraged to not make any medication changes and to discuss with her physician any changes in her mood. Mother states, the breast do not feel empty after baby breastfeeds . Mother pumps her breast after every breastfeed to use breastmilk to supplement her infant and to remove the milk. Infant History: 37 EGA was delivered vaginally with compound presentation of the hand by the face. Infant was exclusively breastfed as a inpatient after delivery. Observations: wakes with stimulation. Mother latches her with a clicking sound heard. Mother works well with her infant and was encouraged to bring closer to her body and achieve a deeper latch to the breast. Mother states she clicks a lot with feedings whether it is breast or bottle . Clicking resolved with a deeper latch. is reluctant to effectively breastfeed. Infant will take two sucks, then swallow and pause even after the milk has let-down . At times will hold the nipple in her mouth or will not open wide enough to optimally latch infant to the breast. Mother is encouraged to gently massage and compress breast to encourage infant more swallows at the breast. After nursing for a few minutes infant becomes agitated and pulls off the breast. Mother was encouraged to place infant skin to skin and when feeding cues are visualized to offer the breast again. Mother states the breast do not feel empty after baby breastfeeds , then she pumps her breast after every breastfeed to use breastmilk to supplement her infant and to remove the milk. weight: 3120g (6-14) Lowest weight: 2700g (5-15.2) Last weight: 11/[address] Pre-feed weight: 2937g (6-7.3) Post-feed weight: 2949g After for 30 minutes, weighing infant and not visualizing good efforts at the breast, it is determined that infant is not transferring milk from the breast well. After practicing on both breasts in two different positions, was supplemented with paced bottle feeding. has good efforts and sucking with the bottle, however, at times infant allows the formula to roll out of her mouth rather than swallow. Plan of Care: It was suggested to have the assessed by Pediatric speech and OT for feeding issues. Patient will discuss this with Dr. Kraft. Follow up plans: follows up with Dr. Kraft's office 04/03 for a weight check. Dr. Kraft's office was called and notified of the appt. today and suggestion for speech/OT therapy.
== END 2022-04-02 09:43 | disposition home or self-care (01) ==
LOC: ANHOBOP 11:35
PROVIDERS: PCP Family Medicine; Visit Provider Pediatrics
DX: Z39.2 Encounter for routine postpartum follow-up (principal)
CPT/HCPCS: 99213; G0463

== ENCOUNTER 2022-06-10 08:58 | Outpatient (CLI) | payer BC, SELFPAY ==
[2022-06-10 10:11] LABS: Glucose Fasting 93 mg/dL
[2022-06-10 11:56] LABS: Glucose 1 Hour 124 mg/dL
[2022-06-10 12:54] LABS: Glucose 2 Hour 112 mg/dL
== END 2022-06-10 08:59 | disposition home or self-care (01) ==
LOC: ANHLAB 08:59
PROVIDERS: PCP Family Medicine; Visit Provider Obstetrics & Gynecology
DX: O24.419 Gestational diabetes mellitus in pregnancy, unspecified control (principal); Z3A.00 Weeks of gestation of pregnancy not specified
CPT/HCPCS: 36415; 82951